=== PATIENT | female | born 1950 | race Caucasian/White ===

== ENCOUNTER 2019-04-04 09:32 | Outpatient (CLI) | payer MEDICARE, OTHER ==
[2019-04-04] MEDS ORDERED: TELM1TAB2 PO (10:31)
[2019-04-04] MEDS ORDERED: FLUT1DIS IH (10:31)
[2019-04-04] MEDS ORDERED: RIZA10TA20 PO (10:31)
[2019-04-04] MEDS ORDERED: ALBU90AE INH (10:31)
[2019-04-04] MEDS ORDERED: SIMV10TA PO (10:31)
[2019-04-04 10:47] LABS: ALANINE AMINOTRANSFERASE 27 U/L (12-78); ALBUMIN 4.1 g/dL (3.4-5.0); ANION GAP 4 mmol/L (5-15); CALCIUM 8.9 mg/dL (8.5-10.1); CHLORIDE 109 mmol/L (98-107); CREATININE 0.84 mg/dL (0.55-1.02)
[2019-04-04 10:49] LABS: ALKALINE PHOSPHATASE 102 U/L (45-117); BILIRUBIN,TOTAL 0.4 mg/dL (0.2-1.0); TOTAL PROTEIN 7.5 g/dL (6.4-8.2)
== END 2019-04-04 23:59 | disposition home or self-care (01) ==
LOC: STAR 09:32
PROVIDERS: ATTEND Thoracic Surgery (Cardiothoracic Vascular Surgery)
DX: Z01.818 Encounter for other preprocedural examination (principal)
CPT/HCPCS: 36415; 80053; 93005

== ENCOUNTER 2019-04-12 05:45 | Day surgery (SDC) | payer MEDICARE, OTHER ==
[~2019-04-12] VITALS: Ht 170.2 cm; Wt 120.5 kg
[~2019-04-12 05:45] MED LIST: ALBU90AE INH; FLUT1DIS IH; RIZA10TA20 PO; SIMV10TA PO; TELM1TAB2 PO
[2019-04-12 06:23] VITALS: BP 148/105
[2019-04-12] MEDS ORDERED: LACTATED RINGERS 1,000 ML IV SCH ×2 (06:23→08:27)
[2019-04-12] MEDS ORDERED: LIDOCAINE-MPF 1%, 2ML INFIL ONE (06:30)
[2019-04-12] MEDS ORDERED: BUPIVACAINE/PF 0.5% ONE (06:57)
[2019-04-12] MEDS ORDERED: EPINEPHRINE 1 MG/ML, 1ML ONE (06:57)
[2019-04-12] MEDS ORDERED: GLYCOPYRROLATE 0.2MG/1ML, 5ML ONE (07:07)
[2019-04-12] MEDS ORDERED: PROPOFOL 10 MG/ML, 20ML ONE (07:07)
[2019-04-12] MEDS ORDERED: SUCCINYLCHOLINE 20 MG/ML, 10ML ONE (07:07)
[2019-04-12] MEDS ORDERED: CEFAZOLIN 1,000 MG ONE ×2 (07:07→07:28)
[2019-04-12] MEDS ORDERED: ROCURONIUM 10MG/ML,5ML ONE (07:07)
[2019-04-12] MEDS ORDERED: LIDOCAINE-MPF 2% ,5ML ONE (07:07)
[2019-04-12] MEDS ORDERED: ONDANSETRON 2MG/ML, 2ML ONE (07:07)
[2019-04-12] MEDS ORDERED: NEOSTIGMINE 1 MG/ML, 10ML ONE (07:07)
[2019-04-12] MEDS ORDERED: DEXAMETHASONE 4 MG/ML, 1ML ONE (07:07)
[2019-04-12] MEDS ORDERED: FENTANYL PF 100 MCG/2ML ONE ×2 (07:07→07:35)
[2019-04-12] MEDS ORDERED: MIDAZOLAM 1 MG/ML, 2ML ONE (07:07)
[2019-04-12] MEDS ORDERED: SODIUM CHLORIDE 0.9% PF 10ML ONE (07:11)
[2019-04-12] MEDS ORDERED: LIDOCAINE GEL 2%, 5ML ONE (07:16)
[2019-04-12] MEDS ORDERED: OXYcodone 5 MG/5 ML ORAL.SOL UDC PO PRN (07:30)
[2019-04-12] MEDS ORDERED: EPHEDRINE 50 MG/ML, 1ML IVPush PRN (07:30)
[2019-04-12] MEDS ORDERED: ACETAMINOPHEN 500 MG TABLET PO ONE (07:30)
[2019-04-12] MEDS ORDERED: PROMETHAZINE 25 MG/ML, 1ML IV PRN (07:30)
[2019-04-12] MEDS ORDERED: MEPERIDINE/PF 25MG/ML,1ML IVPush PRN (07:30)
[2019-04-12] MEDS ORDERED: FENTANYL PF 100 MCG/2ML IV PRN (07:30)
[2019-04-12] MEDS ORDERED: HYDROmorphone 2 MG/ML, 1ML IVPush PRN (07:30)
[2019-04-12] MEDS ORDERED: hydrALAzine 20 MG/ML, 1ML IV PRN (07:30)
[2019-04-12] MEDS ORDERED: ONDANSETRON 2MG/ML, 2ML IV PRN (07:30)
[2019-04-12] MEDS ORDERED: LABETALOL 5MG/ML, 20ML IV PRN (07:30)
[2019-04-12] MEDS ORDERED: KETOROLAC 30 MG/1 ML ONE (07:36)
[2019-04-12] MEDS ORDERED: HYDROcodone/APAP 5/325 TABLET PO PRN (08:30)
[2019-04-12] MEDS ORDERED: ONDANSETRON 2MG/ML, 2ML IVPush PRN (08:30)
[2019-04-12] MEDS ORDERED: morphine SULFATE 10 MG/ML, 1ML IVPush PRN (08:30)
== END 2019-04-12 10:20 | disposition home or self-care (01) ==
LOC: OUT 05:45
PROVIDERS: ATTEND Thoracic Surgery (Cardiothoracic Vascular Surgery)
DX: K95.09 Other complications of gastric band procedure (principal); K66.0 Peritoneal adhesions (postprocedural) (postinfection); R10.13 Epigastric pain; J45.909 Unspecified asthma, uncomplicated; G43.909 Migraine, unspecified, not intractable, without status migrainosus; E78.5 Hyperlipidemia, unspecified; I10 Essential (primary) hypertension; F41.9 Anxiety disorder, unspecified; K21.9 Gastro-esophageal reflux disease without esophagitis; E66.01 Morbid (severe) obesity due to excess calories; Z68.41 Body mass index [BMI] 40.0-44.9, adult; Z79.899 Other long term (current) drug therapy; Z90.49 Acquired absence of other specified parts of digestive tract; Z90.710 Acquired absence of both cervix and uterus; Z80.1 Family history of malignant neoplasm of trachea, bronchus and lung; Z80.8 Family history of malignant neoplasm of other organs or systems
CPT/HCPCS: 43774; J0171; J0330; J0690; J1100; J1885; J2250; J2405; J2704; J2710; J3010

== ENCOUNTER 2019-12-22 09:15 | Emergency (ER) | payer MEDICARE, OTHER ==
[~2019-12-22] VITALS: Ht 170.2 cm; Wt 117.1 kg
[2019-12-22 09:23] VITALS: BP 131/92
--- NOTE | 2019-12-22 10:09 | NUR ---
REPORT FROM ESTHER MILLER WITH REVIEW OF TRANSFER INFORMATION PATIENT WITH LEFT FLANK PAIN STARTING ROUGHLY 10 HOURS AGO WITH PELVIC ITCHING PAIN SIMILIAR TO PREVIOUSLY DX KIDNEY STONES AND UTI CT SHOWED LEFT UVJ 4MM STONE AND CATH UA SHOWED NITRITE POSITIVE TREATED WITH 1L NS, TORADOL AND 750ML OF LEVAQUIN
[2019-12-22 10:47] LABS: MICROSCOPIC AUTO
== END 2019-12-22 12:23 | disposition home or self-care (01) ==
LOC: ED 12:10
DX: N13.2 Hydronephrosis with renal and ureteral calculous obstruction (principal); F19.10 Other psychoactive substance abuse, uncomplicated; R10.9 Unspecified abdominal pain; E78.5 Hyperlipidemia, unspecified; Z90.89 Acquired absence of other organs; Z90.49 Acquired absence of other specified parts of digestive tract; Z90.710 Acquired absence of both cervix and uterus
CPT/HCPCS: 81001; 87086; 99283